=== PATIENT | male | born 1980 | race Two or more races ===

== ENCOUNTER 2017-02-14 02:27 | Emergency (ER) | payer MEDICAID ==
[~2017-02-14] VITALS: Ht 180.3 cm; Wt 90.7 kg
[2017-02-14 02:52] LABS: Basophils # (auto) 0.1 uL; Basophils % (auto) 0.7 % (0.0-2.0); CONDITION Y; Eosinophils # (auto) 0.1 uL; Eosinophils % (auto) 1.8 % (0.0-7.0); Hematocrit 48.7 % (41.0-53.0); Hemoglobin 16.9 g/dL (13.5-17.5); Lymphocytes # (auto) 2.2 uL; Lymphocytes % (auto) 29.7 % (10.0-50.0); Mean Corpuscular Hemoglobin 31.1 pg (28.0-32.0); Mean Corpuscular Hgb Conc. 34.8 g/dL (32.0-36.0); Mean Corpuscular Volume 89.4 fL (80.0-100.0); Mean Platelet Volume 7.8 fL (7.4-10.4); Monocytes # (auto) 0.4 uL; Monocytes % (auto) 5.8 % (0.0-12.0); Neutrophils # (auto) 4.6 uL; Platelet Count (auto) 331 10^3/uL (140-450); Red Cell Distribution Width 12.3 % (11.6-16.0); White Blood Cell 7.5 10^3/uL (4.4-10.8)
[2017-02-14 02:54] LABS: Urine RBC None Seen /hpf (0 - 3)
[2017-02-14 03:06] LABS: INR 0.96 (0.9-1.15); Partial Thromboplastin Time 26.8 sec (22.64-33.71); Prothrombin Time 10.5 sec (9.37-12.3)
[2017-02-14 03:08] LABS: Urine Bilirubin Negative (Negative); Urine Blood Negative /uL (Negative); Urine Color Yellow (Yellow); Urine Glucose 4+ mg/dL (Normal); Urine Ketone Negative (Negative); Urine Nitrite Negative (Negative); Urine Urobilinogen Normal (Negative)
[2017-02-14 03:26] LABS: Albumin 3.7 g/dL (3.4-5.0); Anion Gap 9 (5-15); Aspartate Aminotransferase 12 U/L (15-37); BUN/Creatinine Ratio 11.8; Blood Urea Nitrogen 14 mg/dL (7-18); Calcium 8.8 mg/dL (8.5-10.1); Carbon Dioxide 27 mmol/L (21-32); Chloride 102 mmol/L (98-107); GFR African American 89 mL/min; GFR Non-African American 74 mL/min; Glucose 342 mg/dL (74-106); Magnesium 2.2 mg/dL (1.6-2.6); Potassium 4.4 mmol/L (3.5-5.1); Sodium 138 mmol/L (136-145)
[2017-02-14 03:31] LABS: Alkaline Phosphatase 94 U/L (45-117); Bilirubin, Total 0.6 mg/dL (0.2-1.0); Total Protein 7.2 g/dL (6.4-8.2)
[2017-02-14] MEDS ORDERED: SODIUM CHLORIDE 0.9% 1,000 ML IV ONE (06:15)
[2017-02-14] MEDS ORDERED: metFORMIN HYDROCHLORIDE 500 MG TAB PO ONE (09:30)
[2017-02-14 10:59] VITALS: BP 129/77
== END 2017-02-14 11:03 | disposition home or self-care (01) ==
LOC: ER 02:27
DX: R51 Headache (principal); F17.210 Nicotine dependence, cigarettes, uncomplicated
CPT/HCPCS: 36415; 70450; 71020; 80053; 80307; 81001; 83735; 84484; 85025; 85610; 85730; 93005; 96360; 99285; J7030